=== PATIENT | male | born 1975 | race Caucasian/White ===

== ENCOUNTER 2022-03-23 14:18 | Outpatient (CLI) | payer OTHER ==
--- NOTE | 2022-03-23 12:38 | XRAY Report ---
PROCEDURE: Elbow 3 View RT INDICATIONS: RIGHT ELBOW PAIN TECHNIQUE: 3 views of the elbow were acquired. COMPARISON: None FINDINGS: Bones: No fractures or dislocations. No suspicious bony lesions. Soft tissues: No elbow joint effusion. No suspicious soft tissue calcifications. IMPRESSION: Normal right elbow Reviewed by: Kiran Martinez on 03/23/2022 12:36 PM [facility] Approved by: Kiran Martinez on 03/23/2022 12:36 PM [facility] Station ID: [id number]
--- NOTE | 2022-03-23 12:38 | XRAY Report ---
PROCEDURE: Wrist 3 View LT INDICATIONS: LEFT WRIST PAIN TECHNIQUE: 3 views of the wrist were acquired. COMPARISON: None FINDINGS: Bones: No fractures or dislocations. No suspicious bony lesions. Soft tissues: No suspicious soft tissue calcifications. IMPRESSION: Normal left wrist Reviewed by: Kiran Martinez on 03/23/2022 12:37 PM [facility] Approved by: Kiran Martinez on 03/23/2022 12:37 PM [facility] Station ID: [id number]
== END 2022-03-23 14:19 | disposition home or self-care (01) ==
LOC: DI.S 14:18
PROVIDERS: ATTEND Registered Nurse
DX: M25.521 Pain in right elbow (principal); M25.532 Pain in left wrist

== ENCOUNTER 2022-12-14 09:41 | Outpatient (CLI) | payer OTHER ==
[2022-12-14 14:23] LABS: BASOPHILS # (AUTO) 0.1 10^3/uL (0.0-0.1); EOSINOPHILS # (AUTO) 0.1 10^3/uL (0.0-0.7); EOSINOPHILS % (AUTO) 1.5 %; HCT - HEMATOCRIT 44.8 % (42.0-52.0); MEAN CORPUSCULAR HEMOGLOBIN 30.1 pg (27.0-31.0); MEAN CORPUSCULAR HGB CONC 33.5 g/dL (32.0-36.0); MEAN PLATELET VOLUME 9.9 fL (7.4-11.4); MONOCYTES # (AUTO) 0.5 10^3/uL (0.0-1.0); MONOCYTES % (AUTO) 9.1 %; NEUTROPHILS # (AUTO) 3.6 10^3/uL (1.5-6.6); PLT - PLATELET COUNT 223 10^3/uL (130-450); RED BLOOD COUNT 4.98 10^6/uL (4.70-6.10); RED CELL DISTRIBUTION WIDTH 12.4 % (12.0-15.0); WHITE BLOOD COUNT 5.3 x10^3/uL (4.8-10.8)
[2022-12-14 14:44] LABS: ALBUMIN 4.4 g/dL (3.2-5.5); ALKALINE PHOSPHATASE 73 IU/L (42-121); ALT ALANINE AMINOTRANSFERASE 20 IU/L (10-60); AST ASPARTATE AMINOTRANSFERASE 19 IU/L (10-42); BILIRUBIN,TOTAL 0.8 mg/dL (0.2-1.0); BUN - BLOOD UREA NITROGEN 25 mg/dL (6-20); CALCIUM 9.2 mg/dL (8.5-10.3); CARBON DIOXIDE - CO2 30 mmol/L (21-32); CHLORIDE 104 mmol/L (101-111); CHOL/HDL RATIO 2.9 (<5.0); CHOLESTEROL 183 mg/dL; CREATININE 0.9 mg/dL (0.6-1.3); GFR - MDRD 91 (>89); GLUCOSE 101 mg/dL (74-104); HDL CHOLESTEROL 63 mg/dL; LDL CHOLESTEROL,CALCULATED 105 mg/dL; LDL/HDL RATIO 1.7 (<3.6); SODIUM 137 mmol/L (135-145); TOTAL PROTEIN 6.6 g/dL (6.4-8.9); TRIGLYCERIDES 75 mg/dL (48-352); VLDL CHOLESTEROL 15 mg/dL
== END 2022-12-14 09:42 | disposition home or self-care (01) ==
LOC: LAB.S 09:41
PROVIDERS: ATTEND Nurse Practitioner Acute Care
DX: Z13.228 Encounter for screening for other metabolic disorders (principal); Z13.220 Encounter for screening for lipoid disorders; Z12.5 Encounter for screening for malignant neoplasm of prostate; Z13.0 Encounter for screening for diseases of the blood and blood-forming organs and certain disorders involving the immune mechanism
CPT/HCPCS: 36415; 80053; 80061; 83721; 84153; 85025

== ENCOUNTER 2023-05-25 07:00 | Outpatient (CLI) | payer OTHER | END 2023-05-25 23:59 | disposition home or self-care (01) | LOC: LAB.S 07:00 | PROVIDERS: ATTEND Emergency Medicine | DX: J02.0 Streptococcal pharyngitis (principal) | CPT/HCPCS: 87070; 87077 ==

== ENCOUNTER 2023-06-13 10:42 | Emergency (ER) | payer OTHER ==
[2023-06-13] MEDS: ACETAMINOPHEN 325 MG TABLET PO STA (12:55)
[2023-06-13] MEDS ORDERED: IBUPROFEN 200 MG/10 ML UDC ONE (12:58)
[2023-06-13] MEDS: IBUPROFEN 200 MG/10 ML UDC PO STA (12:58)
--- NOTE | 2023-06-13 13:00 | ED Physician Documentation ---
PD HPI HEENT - Stated complaint Stated Complaint: THROAT PX,SWELLING - Chief complaint Chief Complaint: Heent - Additional information Additional information: 48-year-old male presents emergency department for throat pain. Patient has been suffering from tonsillitis and throat issues now since March. Diagnosed with strep throat 04/15 took full course of antibiotics as prescribed came back into urgent care walk-in clinic For again ongoing sore throatHe was then diagnosed with a peritonsillar abscess and was started on clindamycin and steroids. Patient reportsHe started experiencing sore throat yesterday again. He said originally started to hurt his right tonsil and is rapidly spreading to his left tonsil. PD PAST MEDICAL HISTORY - Past Medical History Past Medical History: No - Past Surgical History Past Surgical History: No - Present Medications Home Medications: Ambulatory Orders Medication Instructions Recorded Confirmed Amox/Clav 875/125 [Augmentin 1 tablet PO Q8H 10 Days #30 tablet 06/13/23 875/125 Tab] methylPREDNISolone [Medrol Dose 1 each PO .PACKAGEINSTRUCTIONS 6 06/13/23 Pack] Days #1 each - Allergies Allergies/Adverse Reactions: Allergies Allergy/AdvReac Type Severity Reaction Status Date / Time No Known Drug Allergies Allergy Verified 06/13/23 11:00 - Social History Does the pt smoke?: No Smoking Status: Never smoker Does the pt drink ETOH?: No Does the pt have substance abuse?: No - Immunizations Immunizations are current?: Yes - POLST Patient has POLST: No PD ED PE NORMAL - Vitals Vital signs reviewed: Yes - General General: Alert and oriented X 3, No acute distress, Well developed/nourished - HEENT HEENT: EOMI (3+ bilateral tonsils without exudate. Left is larger than right.), Other - Neck Neck: Supple, no meningeal sign, No adenopathy - Cardiac Cardiac: RRR - Respiratory Respiratory: No respiratory distress, Clear bilaterally - Derm Derm: Normal color, Warm and dry, No rash - Psych Psych: Normal mood Results - Vitals Vitals: Vital Signs - 24 hr 06/13/23 06/13/23 06/13/23 10:55 15:47 19:24 Temperature 36.7 C Heart Rate 63 62 77 Respiratory 16 16 16 Rate Blood Pressure 117/51 L 121/58 L 122/67 O2 Saturation 98 98 100 Oxygen O2 Source Room air - Labs Labs: Laboratory Tests 06/13/23 06/13/23 06/13/23 13:00 16:58 16:58 WBC 11.5 H RBC 5.05 Hgb 14.4 Hct 44.6 MCV 88.3 MCH 28.5 MCHC 32.3 RDW 12.5 Plt Count 191 MPV 8.8 Neut # (Auto) 9.3 H Lymph # (Auto) 1.2 L [place] # (Auto) 0.9 Eos # (Auto) 0.0 Baso # (Auto) 0.0 Absolute Nucleated RBC 0.00 Nucleated RBC % 0.0 Sodium 137 Potassium 3.4 L Chloride 101 Carbon Dioxide 30 Anion Gap 6.0 BUN 15 Creatinine 0.9 Estimated GFR (MDRD) 90 Glucose 96 Calcium 9.4 Total Bilirubin 1.5 H AST 17 ALT 27 Alkaline Phosphatase 60 Total Protein 7.3 Albumin 4.3 Globulin 3.0 Albumin/Globulin Ratio 1.4 Group A Strep Rapid POSITIVE H PD Medical Decision Making - ED course ED course: 48 yo male here for ongoing throat pain. Pt tested positive for group A strep throat for the third month in a row. He has already received Amoxicillin and Clindamycin outpatient as well as steroids Which did appear to help the patient although he keeps getting these recurrent sore throats. Labs are complete he does have a slight leukocytosis, with WBC 11.5 potassium 3.4, neutrophils slightly elevated at 9.3, mildly suppressed lymphocytes 1.2. I spoke with Dr. Jose [facility] who was kind enough to consult on the patient. He said that patient would benefit from one-time dose of Unasyn here in the emergency department and then a CT soft tissue to make sure there is not an underlying tonsillar abscess that is needing to be drained. He also recommended a one-time dose of 20 mg of Decadron here in the emergency department start him on a Medrol taper dose outpatient. CT scan did not reveal any abscesses. Patient was kind enough to wait until we were able to get into ENT said this because for a very long visit in the emergency department. Dr. Jose said that he would be able to see the patient hopefully sometime tomorrow or the next day at [facility] patient was given his contact information to reach out to the office tomorrow to make an appointment. He was given strict return pr ecautions all questions answered safe for discharge she is discharged home with Augmentin. Departure - Departure Disposition: 01 Home, Self Care Clinical Impression: Group beta Strep positive Condition: Good Instructions: Strep Screen Rapid Prescriptions: Amox/Clav 875/125 [Augmentin 875/125 Tab] 1 tablet PO Q8H 10 Days #30 tablet methylPREDNISolone [Medrol Dose Pack] 1 each PO .PACKAGEINSTRUCTIONS 6 Days #1 each Comments: Thank you so much for your patience, you do have group A strep we have started you on an antibiotic, Augmentin I have sent this to your preferred pharmacy [facility]. I also started you on a steroid taper as well. As we discussed to be having a hard time falling asleep try something like melatonin or Benadryl at home for difficulty sleeping. Please make sure that you follow- up with [facility] this week. I have sent an urgent referral into Dr. Jose their phone number is [phone] if you not hear from them tomorrow I would call them by tomorrow afternoon to make sure that you get in with an appointment with them [facility]. Please come back to the emergency department if you are developing worsening throat pain difficulty swallowing or breathing or any other concerning symptoms. Forms: PCP List Discharge Date/Time: 06/13/23 19:36
[2023-06-13 13:28] LABS: RAPID STREP SCREEN POSITIVE (Negative)
[2023-06-13] MEDS ORDERED: iohexoL-300 100 ML VIAL ONE (17:05)
[2023-06-13 17:08] LABS: BASOPHILS % (AUTO) 0.3 %; EOSINOPHILS % (AUTO) 0.1 %; HCT - HEMATOCRIT 44.6 % (42.0-52.0); HGB - HEMOGLOBIN 14.4 g/dL (14.0-18.0); LYMPHOCYTES # (AUTO) 1.2 10^3/uL (1.5-3.5); LYMPHOCYTES % (AUTO) 10.5 %; MEAN CORPUSCULAR HEMOGLOBIN 28.5 pg (27.0-31.0); MEAN CORPUSCULAR HGB CONC 32.3 g/dL (32.0-36.0); MEAN CORPUSCULAR VOLUME 88.3 fL (80.0-94.0); MEAN PLATELET VOLUME 8.8 fL (7.4-11.4); MONOCYTES # (AUTO) 0.9 10^3/uL (0.0-1.0); MONOCYTES % (AUTO) 7.7 %; NEUTROPHILS # (AUTO) 9.3 10^3/uL (1.5-6.6); NEUTROPHILS % (AUTO) 81.1 %; PLT - PLATELET COUNT 191 10^3/uL (130-450); RED BLOOD COUNT 5.05 10^6/uL (4.70-6.10); RED CELL DISTRIBUTION WIDTH 12.5 % (12.0-15.0); WHITE BLOOD COUNT 11.5 x10^3/uL (4.8-10.8)
[2023-06-13 17:28] LABS: ALBUMIN 4.3 g/dL (3.2-5.5); ALBUMIN/GLOBULIN RATIO 1.4 (1.0-2.2); BILIRUBIN,TOTAL 1.5 mg/dL (0.2-1.0); CALCIUM 9.4 mg/dL (8.5-10.3); CREATININE 0.9 mg/dL (0.6-1.3); POTASSIUM 3.4 mmol/L (3.5-4.5); TOTAL PROTEIN 7.3 g/dL (6.4-8.9)
[2023-06-13] MEDS: AMPICILLIN/SULBACTAM 3 GM in SODIUM CHLORIDE 0.9% MINIBAG 100 ML IV STA (17:57)
[2023-06-13] MEDS: iohexoL-300 100 ML VIAL IVP ONE (18:35)
--- NOTE | 2023-06-13 18:58 | CT Report ---
PROCEDURE: Soft Tissue Neck W INDICATIONS: worsening tonsilar pain CONTRAST: 100mL Omni 300 TECHNIQUE: After the administration of intravenous contrast, 3.0 mm axial sections acquired from the sella to th e aortic arch. Additional oblique axial 3.0 mm sections acquired through the pharynx. 3 mm thick co sierra reformats were generated. For radiation dose reduction, the following was used: automated exp osure control, adjustment of mA and/or kV according to patient size. COMPARISON: None. FINDINGS: Image quality: Excellent. Lymph nodes: No enlarged lymph nodes seen throughout the neck. Vessels: Visualized vasculature appears patent. Neck spaces: Generalized prominence can be seen of the tonsils, left worse than right. There is mild prominence of the adenoids. The oropharynx, nasopharynx, and pharynx demonstrate no mucosal lesions. The vocal cords, false voca l cords, pyriform sinuses, epiglottis, vallecula, and tongue base all appear normal. Extramucosal sp aces appear unremarkable. Glands: The parotid and submandibular glands appear normal. The thyroid is normal in size and there are no incidental findings. Miscellaneous: Visualized brain and orbits appear normal. Lung apices appear clear. Superficial so ft tissues appear normal. Bones: No suspicious bony lesions. Visualized sinuses and mastoids appear unremarkable. IMPRESSION: Generalized prominence of the tonsils and adenoids, without abscess or masses. No enlarged cervical lymph nodes are seen. Reviewed by: Lars Jean MD on 06/13/2023 5:57 PM [place] Approved by: Lars Jean MD on 06/13/2023 5:57 PM [facility] Station ID: [id number]
[2023-06-13] MEDS: DEXAMETHASONE 10 MG/ML VIAL PO STA (19:21)
[2023-06-13] MEDS: CHERRY SYRUP 10 ML UDC PO ONE (19:21)
[2023-06-13 19:30] VITALS: BP 122/67; O2SAT 100
== END 2023-06-13 19:36 | disposition home or self-care (01) ==
LOC: ED 10:42
DX: J02.0 Streptococcal pharyngitis (principal); B95.1 Streptococcus, group B, as the cause of diseases classified elsewhere
CPT/HCPCS: 36415; 70491; 80053; 85025; 87430; 96365; 99284; A9270; Q9967